=== PATIENT | female | born 1975 | race Caucasian/White ===

== ENCOUNTER 2024-06-09 20:12 | Observation (INO) | payer OTHER, SELFPAY ==
[2024-06-09] VITALS (7 sets, daily range): BP systolic 143–182; BP diastolic 89–127; BMI 39.4
[2024-06-09 17:15] LABS: ALT (SGPT) 21 U/L (0-35); AST (SGOT) 24 U/L (14-36); Albumin 4.5 g/dl (3.5-5.0); Alkaline Phosphatase 83 U/L (38-126); Blood Urea Nitrogen 10 mg/dl (7-17); Calcium 9.7 mg/dl (8.4-10.2); Carbon Dioxide 22 mmol/L (22-30); Chloride 106 mmol/L (98-107); Glucose 131 mg/dl (70-99); Potassium 4.1 mmol/L (3.5-5.1); Sodium 140 mmol/L (135-145); Total Bilirubin 0.5 mg/dl (0.2-1.3); Total Protein 7.9 g/dl (6.3-8.2); eGFR > 60.00
[2024-06-09 17:23] LABS: % Basophils 0.8 % (0-2); % Eosinophils 2.7 % (0-6); % Immature Granulocytes 0.6 % (0-0.5); % Lymphocytes 36.9 % (20.5-51.1); % Monocytes 5.6 % (1.7-9.3); % Neutrophils 53.4 % (42.2-75.2); Absolute Eosinophils 0.1 10^3/uL (0-0.7); Absolute Lymphocytes 1.9 10^3/uL (1.2-3.4); Absolute Monocytes 0.3 10^3/uL (0.1-0.6); Absolute Neutrophils 2.8 10^3/uL (1.4-6.5); Hematocrit 37.2 % (37.0-47.0); Hemoglobin 12.3 g/dL (12.0-16.0); Mean Corp Hgb Conc. 33.1 g/dL (33.0-37.0); Mean Corpuscular Hgb 26.7 pg (27.0-31.0); Mean Corpuscular Volume 80.7 fL (81.0-99.0); Mean Platelet Volume 10.4 fL (7.4-10.4); Nucleated Red Blood Cells % 0 %; Platelet Count 407 10^3/uL (130-400); Red Blood Cell Count 4.61 10^6/uL (4.20-5.40); Red Cell Dist. Width 13.4 % (11.5-14.5); White Blood Cell Count 5.2 10^3/uL (4.8-10.8)
--- NOTE | 2024-06-09 19:07 | ED.CVA ---
History of Present Illness
General
Chief Complaint: CVA/TIA Symptoms
Source: patient
Exam Limitations: none
Time Seen by Provider: 06/09/24 18:58
Onset of Stroke Symptoms
Onset of symptoms known: Yes
Date of onset of symptoms: 06/09/24
Time of onset of symptoms: 02:00
History of Present Illness
History of Present Illness:
49-year-old female went to get to the bathroom at around 2 AM. Noted some tingling and numbness to the right face and a funny feeling in her right arm. No chest pain no shortness of breath. Slight blurry vision. Had some tingling in both legs
yesterday. Currently feels moderately improved but still does not feel 100%. No gait issues no unusual weakness. No double vision. Patient has a history of hypertension.
Past History
Past History
ED Past Medical History: Asthma, HTN and Hypercholesterolemia
ED Past Surgical History: Gynecological (Hysterectomy)
Social History
Tobacco: Non-smoker
Alcohol: Occasional
Personal:
Living: with family
Employment: Employed
Family History
Family History: Early CAD and Other (Maternal history of CAD)
Review of Systems
Review of Systems
All Other Systems: Not applicable
Constitutional: Denies fever or chills
Respiratory: Reports no symptoms
Cardiac: Reports no symptoms
Phy Exam
Physical Exam
Physical Exam:
GENERAL: Alert and oriented in no apparent distress. Significant hypertension her first 2 readings. Repeat reading now is reasonable
EYE: Orbits normal.
NECK: Supple, no carotid bruit
CARDIAC: Regular rate and rhythm without any obvious murmurs.
LUNGS: Clear breath sounds,normal
ABDOMEN: Soft, without focal tenderness or distention
NEUROLOGICAL: Alert and oriented , speech normal. Cranial nerves II through XII intact. Fylzup-hs-[id number] normal. Qtdh-sx-twev normal. No drift. Straight leg raising normal. Light touch intact but subjectively some decreased sensation to the
right face and right arm
SKIN: Warm and dry, no rash or lesion, no discoloration, skin intact.
MUSCULOSKELETAL: No edema,no deformity.Good color
PSYCH: Normal and appropriate interaction.
Course
Orders/Labs/Results
Orders:
Orders
06/09/24 16:30
Electrocardiogram (*1) Stat
Reason for Study: Other
Other Reason for Exam: neuro symptoms
CT Head W/o Iv Contrast Urgent
Comment:
Reason For Exam: left facial droop? tingling in RUE/RLE, ewakness;
EKG- Treatment ONCE
06/09/24 16:31
PTT Urgent
Prothrombin Time Urgent
06/09/24 16:48
Complete Blood Count/With Diff Urgent
Comprehensive Metabolic Panel Urgent
Lyme Progressive Urgent
06/09/24 19:12
Aspirin Chewable [Low Strength Aspirin] 324 mg PO NOW STA
Abnormal Lab Results
06/09/24
16:48
MCV 80.7 L fL
(81.0-99.0)
MCH 26.7 L pg
(27.0-31.0)
Plt Count 407 H 10^3/uL
(130-400)
Immature Gran % 0.6 H %
(0-0.5)
Glucose 131 H mg/dl
(70-99)
06/09/24 16:48
06/09/24 16:48
Vital Signs
Initial and Last Documented VS:
Initial Vital Signs
Temp Pulse Resp BP Pulse Ox
97.7 F 99 16 176/94 98
06/09/24 16:23 06/09/24 16:23 06/09/24 16:23 06/09/24 16:23 06/09/24 16:23
Last Documented Vital Signs
Temp Pulse Resp BP Pulse Ox
97.7 F 99 16 176/94 98
06/09/24 16:23 06/09/24 16:23 06/09/24 16:23 06/09/24 16:23 06/09/24 16:23
MDM/Problems Addressed
Differential Diagnosis Includes:
Patient describing a possible sensory CVA versus prolonged TIA. Not totally consistent as she did have some paresthesias in both extremities yesterday. However relatively consistent today. Her neurologic exam has a NIH of 1 at this time. She did
have significant hypertension on arrival and her initial repeat EKG. Current blood pressure is reasonable. Warrants admission aspirin and further neurologic workup. Strong family history with her mom
*Radiology
Radiology exam reviewed: radiology read reviewed (Negative CT)
*Pulse Oximetry
Patient hypoxic: no
*EKG
Interpreted by ED Provider?: Yes
Interpretation: normal
Comparison EKG: no changes
Heart Rate: 82
Rate: normal
Rhythm: sinus
[place]: normal axis
Interval: normal interval
QRS Pattern: normal QRS
Ischemia: other (Old inferior T wave changes)
*Plan Rep Interpretation
Rate: normal
Interpretation: normal
Heart Rate: 80
Rhythm: sinus
*Critical Care Note
Total Time (30-74mins, 75-104mins- exclusive of procedures): Not Applicable
Data Reviewed
Review of Other/Old Records Reveals: Labs, Records, Radiology Studies and Testing
ED Attending Note
-
Portions of this chart may have been created with voice recognition software.� Occasional wrong word or��sound alike� substitutions may have occurred due to the inherent limitations of voice recognition software.
Discharge Plan
Departure
Patient Disposition: Admit
Date of Disposition: 06/09/24
Time of Disposition: 19:12
Presentation/result/management discussed w/ accepting MD/DO: Hospitalist
Discharge Problem:
Possible sensory CVA, Hypertensive urgency
Prescriptions:
No Action
multivitamin [Daily Vitamin] 1 EACH tablet
1 ea PO DAILY
amlodipine-benazepril 1 CAPSULE capsule
1 cap PO DAILY
amlodipine-benazepril 1 CAPSULE capsule
1 cap PO DAILY Qty: 30 0RF
diphenoxylate-atropine [Lomotil] 2.5-0.025 mg tablet
1 tab PO QID PRN (Reason: diarrhea) Qty: 10 0RF
ondansetron 4 mg tablet,disintegrating
4 mg PO QID PRN (Reason: nausea and vomiting) Qty: 20 0RF
Referrals:
Rajinder Gastelum DO [Family Provider] -
Interventions
Interventions:
*Risk Screen - Suicide Last Done: 06/09/24 16:23
*General Assessment Last Done: 06/09/24 16:23
*Neglect/Abuse Screening Last Done: 06/09/24 16:23
Discharge Date and Time
Print Language: JORDANIAN
[2024-06-09] MEDS: LOW STRENGTH ASPIRIN 324 MG PO (19:28)
--- NOTE | 2024-06-09 19:48 | HPS.HSE ---
Family Physician
-
Family Physician: Rajinder Gastelum
Chief Complaint
-
numbness
History of Present Illness
49-year-old female past medical history of hypertension, asthma, hypercholesterolemia presenting with numbness and tingling of the right side of her face in the cheek of her left side of her face started around 2 AM when she went up to go to the
bathroom. She also had numbness and tingling in her right upper extremity mostly in the upper arm. Yesterday she had some mild tingling and weakness in the thighs bilaterally but this had resolved. She had some slight blurry vision.
She denies any headache, gait dysfunction, difficulty speaking or swallowing but did feel that when she was chewing she had some weakness.
She denies any chest pain or shortness of breath.
She last checked her blood pressure few days ago and it was in the 120s.
Denies smoking. Drinks alcohol sometimes.
Family history significant for mother and maternal grandmother with history of heart disease and multiple strokes.
Medical History
Past Medical History
Past Medical History: Reports Other ( hypertension, asthma, hypercholesterolemia )
Past Surgical History: Reports None
Social History
Tobacco: Non-smoker
Alcohol: Occasional
Drug: None
Family History
Family History: Other (Family history significant for mother and maternal grandmother with history of heart disease and multiple strokes.)
Allergies / Home Medications
Allergies reflects when Allergies were last updated in [employer].
Home Medications with original date entered in [employer]
Allergy/Medication List:
Allergies
Allergy/AdvReac Type Severity Reaction Status Date / Time
No Known Drug Allergies Allergy NA Verified 06/09/24 16:22
cats & dogs Allergy itchy Uncoded 06/09/24 16:22
eyes,sneezy,
runny nose
molds Allergy sneezing Uncoded 06/09/24 16:22
trees & grasses Allergy itchy Uncoded 06/09/24 16:22
eyes,sneezy,cough
Home Medications
amlodipine 10 mg-benazepril 20 mg capsule 1 cap PO HS 06/09/24
metoprolol succinate 50 mg tablet,extended release 24 hr 50 mg PO HS 06/09/24
Review of Systems
-
History Source: Patient
A 12 point ROS was completed and negative except as noted: Yes
Constitutional: Reports No Symptoms
EENT: Reports No Symptoms
Respiratory: Reports No Symptoms
Cardiac: Reports No Symptoms
Abdomen/GI: Reports No Symptoms
: Reports No Symptoms
Musculoskeletal: Reports No Symptoms
Skin: Reports No Symptoms
Neurological: Reports See HPI
Endocrine: Reports No Symptoms
Hematologic/Lymphatic: Reports No Symptoms
Psych: Reports No Symptoms
Physical Exam
Vital Signs
Vital Signs
Temp Pulse Resp BP Pulse Ox
97.7 F 84 16 155/92 98
06/09/24 16:23 06/09/24 19:30 06/09/24 16:23 06/09/24 19:05 06/09/24 19:30
Physical Exam
General: Well Developed, Well Nourished and No Apparent Distress
HEENT: NormoCephalic, Moist mucous membranes and Atraumatic
Respiratory: Clear
Cardiac: S1/S2 and Regular Rhythm; No Murmur or Rub
GI: Soft, Non Tender, Non Distended and Normal Bowel Sounds; No Organomegaly
Rectal: Deferred by Provider
Musculoskeletal: No Clubbing, No Cyanosis and No Edema
Skin: No Rash
Neuro: Nonfocal/grossly intact and Other (NIh 1 for sensory loss, slight weakness right leg )
Laboratory Results
-
06/09/24 16:48
06/09/24 16:48
Laboratory Results
Total Bilirubin 0.5 mg/dl (0.2-1.3) 06/09/24 16:48
AST 24 U/L (14-36) 06/09/24 16:48
ALT 21 U/L (0-35) 06/09/24 16:48
Alkaline Phosphatase 83 U/L (38-126) 06/09/24 16:48
Data Reviewed
-
Lab Data: Labs Reviewed by me
Old Records: Reviewed
Impression/Plan
-
IMPRESSION:
PLAN:
# Likely CVA
-NIH of 1 due to sensory loss
-CT head shows no acute intracranial abnormality
-Aspirin and Plavix given
-Check MRI/MRA head and neck
-Check A1c and lipid panel
-PT/OT/speech
-Neurology consulted
# Hypertensive emergency
-Permissive hypertension up to 220 systolic
-Hold amlodipine/benazepril
-Continue metoprolol
Full code
DVT prophylaxis�SCDs
Regular diet
[2024-06-09] MEDS: PLAVIX 300 MG PO (19:54)
[2024-06-09 20:25] LABS: INR 1.02; PT 13.2 Sec (11.4-14.6)
[2024-06-09 20:26] LABS: APTT 27.1 Sec (23.4-35.0)
[2024-06-09] MEDS: TOPROL XL 50 MG PO (21:54)
--- NOTE | 2024-06-09 22:00 | PTCARENOTE ---
Pt admitted to [facility]. AAOx3. C/o right side weakness, tingling and numbness. Mild dizziness and visual blurriness. NIH score 2. NSR in the monitor.Lungs and WNL. Abd round and obese. Call santiago within reach. SCD's in placed. Will continue with tx
plan.
[2024-06-10] VITALS (7 sets, daily range): BP systolic 111–154; BP diastolic 66–95; PULSE 81; O2SAT 95
[2024-06-10 07:06] LABS: % Basophils 0.7 % (0-2); % Eosinophils 2.5 % (0-6); % Immature Granulocytes 0.7 % (0-0.5); % Lymphocytes 36.5 % (20.5-51.1); % Monocytes 8.2 % (1.7-9.3); % Neutrophils 51.4 % (42.2-75.2); Absolute Eosinophils 0.2 10^3/uL (0-0.7); Absolute Lymphocytes 2.2 10^3/uL (1.2-3.4); Absolute Monocytes 0.5 10^3/uL (0.1-0.6); Absolute Neutrophils 3.1 10^3/uL (1.4-6.5); Hemoglobin 11.8 g/dL (12.0-16.0); Mean Corp Hgb Conc. 32.8 g/dL (33.0-37.0); Mean Corpuscular Hgb 26.6 pg (27.0-31.0); Mean Corpuscular Volume 81.3 fL (81.0-99.0); Mean Platelet Volume 9.9 fL (7.4-10.4); Nucleated Red Blood Cells % 0 %; Platelet Count 401 10^3/uL (130-400); Red Blood Cell Count 4.43 10^6/uL (4.20-5.40); Red Cell Dist. Width 13.4 % (11.5-14.5); White Blood Cell Count 6.1 10^3/uL (4.8-10.8)
[2024-06-10 07:17] LABS: Blood Urea Nitrogen 12 mg/dl (7-17); Calcium 9.5 mg/dl (8.4-10.2); Carbon Dioxide 24 mmol/L (22-30); Chloride 105 mmol/L (98-107); Estimated Creatinine Clearance > 125 ml/min; Glucose 114 mg/dl (70-99); HDL Cholesterol 26 mg/dl; LDL Cholesterol, Calculated 191 mg/dl; Potassium 4.3 mmol/L (3.5-5.1); Sodium 141 mmol/L (135-145); Total Cholesterol 274 mg/dl (50-199); Triglyceride 289 mg/dl (10-149); Very Low Density Lipoprotein 57 mg/dl (0-30); eGFR > 60.00
[2024-06-10] MEDS: LOW STRENGTH ASPIRIN 81 MG PO (07:59)
[2024-06-10] MEDS: PLAVIX 75 MG PO (07:59)
[2024-06-10 08:16] LABS: Glycohemoglobin (HgbA1c) 6.6 % (4.0-5.6)
--- NOTE | 2024-06-10 08:36 | CON.NEURO4 ---
Addendum entered and electronically signed by Poppy Bloom DO 06/10/24 16:43:
Studies reviewed.
I have personally examined the patient. I agree with the MANAGER TECHNICAL TRAINING's Note.
My addenda:
49 year-old female with numbness, fatigue, tingling, ?facial droop, R arm weakness (not currently present on exam) with very low B12 levels; she was not aware of this. MRI brain negative for stroke/other acute findings as cause for symptoms. B12
supplementation started. Only abnormality on neurological examination was R V1-3 diminished sensation to temperature. Stopped DAPT. Check MRI C/T spines given low B12, constellation of symptoms, ?subacute combined degeneration. Check MMA,
anti-intrinsic factor abs, copper, folate, SPEP, HIV. Can be discharged tomorrow if imaging is unremarkable.
Original Note:
Documented by User: Trinh Flores NP 06/10/24 10:34
Consultation - Neurology 4
-
CONSULTING PHYSICIAN: Poppy Bloom DO
REFERRING PHYSICIAN: Hospitalists/Dr. Harkins
DICTATED BY: PRABHAKAR Anderson
DATE/TIME OF REQUEST: 06/09/24
DATE/TIME OF CONSULTATION: 06/10/24
Reason for Consultation: Numbness
History of Present Illness:
This is a 49-year-old right-handed female who has presented to the hospital on 06/09/24 with report of numbness. Patient reports several weeks of noticeable shortness of breath while walking up a flight of steps, in addition to a one week history of
feeling extremely fatigued. Three days ago on 06/07/24 she reports that bilateral lower extremities from the hips down felt tingly, and her niece thought that one side of her face appeared droopy and she seemed 'off.' Her BLE tingling improved and
was hardly noticeable the following day. She went to bed two nights ago on 06/08/24 feeling at her baseline. At 0200 on 06/09/24 she woke up to use the bathroom and noticed that the right side of her face felt numb like a novocaine sensation, and she
notes this spread slightly into her left cheek as well. She proceeded to go back to bed, and woke up for the day at 0930 yesterday. Upon waking at 0930, she notes that the numbness was persistent in her right face, she had an 'ants crawling' in her
head sensation, and her right arm felt heavy. Her symptoms did not resolve, prompting her to come to the ER in the evening. CT head was obtained on arrival in the ER and is negative for any acute findings. Blood pressure was elevated at 176/94.
NIHSS was 1 for mild decreased sensation. She was not a candidate for TNK/IAT due to outside of time window, low NIHSS. She was loaded with DAPT in the ER.
Overnight, she reports having a headache at 0200 and then again when she woke up, but after eating breakfast it has resolved. Her headache was an aching sensation on the right side of her head and she rated it a 3-4/10. She notes photophobia
currently but denies any phonophobia, nausea, or vomiting. She still endorses ongoing right facial paresthesias, and a heavy sensation in her RUE/RLE. She notes that her vision, most prominently in her right eye was blurry for the past two days but
has improved today. She also notes that swallowing felt difficulty with breakfast this morning which is unusual. Overall she feels extreme fatigue. She denies any dizziness, speech difficulty, ataxia, chest pain, and palpitations.
She notes a 10 year history of hypertension. She has been taking her metoprolol and amlodipine-benazepril for years with no recent changes. She has not been checking her blood pressure at home. She notes having right hand/wrist sensation changes in
2019. She had an EMG at that time that was negative. She took a break from typing and her symptoms resolved. She also notes recently having sciatica down bilateral lower extremities when driving for a prolonged period only, she is supposed to have
an EMG for further workup of this but has not had this done yet. She denies any back/neck pain. About 8 years ago she notes an episode of extreme fatigue followed by vertigo. She underwent a stroke workup at [facility] at that time that was unremarkable.
She was told it was possibly a vestibular migraine. Otherwise, she denies any history of headaches/migraines. She is not taking any blood-thinning medications.
Past Medical History: HTN, HLD, endometriosis, palpitations, [place].
Surgical History: KETURAH-BSO, L thumb surgery
Family History: Mother- NV x5, first age 42. CVA x2, first in her 50's, brain tumor, migraines. Sister- migraine with visual aura. Sister- silent NV in her 40's.
Social History: Denies tobacco. Rare alcohol. Denies illicit drug use.
Allergies: Cat dander, dog dander, grass pollen, mold, tree and shrub pollen.
Home Medications: See below.
Review of Symptoms:
Patient denies any fever, pain, shortness of breath, GI or symptoms.
�Per the HPI.�All systems are reviewed negative except above.
Physical Exam:
The patient is afebrile, abdomen is nondistended, breathing is unlabored, skin is warm and dry, no edema.
NIH Stroke Scale:
I performed the NIH stroke scale on the patient on 06/10/24 at 0900. The patient scored 1 points on the NIH stroke scale assessment, which were assigned as follows: See below.
Neurologic Examination:
The patient is awake, alert and oriented x 3. She is able to follow commands and answer questions appropriately. There is no aphasia or dysarthria. On cranial nerve assessment, pupils are 3 mm bilateral, round and reactive to light and
accommodation. Visual madden are full. Extraocular movements are intact. Facial sensations are intact and bilaterally symmetrical, there is no facial asymmetry. Hearing is intact bilaterally to normal conversation volume. Tongue palate and uvula are
midline. Motor strengths are 5/5 left upper, 5-/5 right upper, 5/5 left lower, and 5-/5 right lower extremities on medical research Saxman scale. There is no drift or involuntary movement noted. Deep tendon reflexes are 1+ bilateral upper and lower
extremities and Babinski is absent bilaterally. Sensations of touch, temperature and vibration are mildly reduced in the right face, arm, and lower extremity. There was no extinction noted on double simultaneous stimulation. Coordination is intact
by finger to nose bilaterally.
Lab Results: See below.
Neuro Imaging:
1. CT Head 06/09/24: No acute intracranial abnormality noted.
Differentials for the patient's presentation include:
1. Small ischemic stroke possibly producing symptoms given risk factors for stroke.
2. Hypertensive urgency.
3. Complicated migraine possibly producing symptoms but less likely given absence of migraine history.
4. HLD.
5. New diagnosis NIDDM.
Patient has the following risk factors for their symptoms: HTN, HLD, NIDDM, family history of stroke
IV Tenecteplase/IAT candidacy: She was not a candidate for TNK/IAT due to outside of time window, low NIHSS.
Recommendations:
-Continue DAPT with aspirin 81mg and Plavix 75mg daily for 21 days. After 21 days, discontinue Plavix and continue aspirin 81mg daily only, indefinitely.
-MRI brain noncontrast, MRA head/neck pending. Lorazepam 1mg IV on-call for MRI due to claustrophobia.
-Goal normotension as symptom onset was >24 hours ago.
-If MRI demonstrates a stroke, will obtain TTE.
-Monitor on telemetry.
-If headache returns, can provide prochlorperazine 10mg IV or migraine cocktail.
-LDL goal <70. LDL is 191. Atorvastatin 40mg daily initiated.
-Goal normoglycemia, hbA1c is 6.6. Will need senior health educator evaluation.
-NIHSS and neurological checks per unit guidelines.
-Provide patient with a stroke education packet.
-PT/OT/ST evaluations.
-DVT prophylaxis.
-Will follow pending results.
Discussed patient care with: Dr. Bloom, the patient
Vital Signs and Labs
-
Vital Signs and Labs:
Vital Signs
Temp Pulse Resp BP Pulse Ox
98.0 F 76 16 149/91 97
06/10/24 07:00 06/10/24 07:00 06/10/24 07:00 06/10/24 07:00 06/10/24 07:00
Lab Results
06/10/24 06:22
06/10/24 06:22
PT 13.2 Sec (11.4-14.6) 06/09/24 19:36
INR 1.02 06/09/24 19:36
APTT 27.1 Sec (23.4-35.0) 06/09/24 19:36
Sodium 141 mmol/L (135-145) 06/10/24 06:22
Potassium 4.3 mmol/L (3.5-5.1) 06/10/24 06:22
BUN 12 mg/dl (7-17) 06/10/24 06:22
Glucose 114 mg/dl (70-99) H 06/10/24 06:22
Calcium 9.5 mg/dl (8.4-10.2) 06/10/24 06:22
LDL Cholesterol, Calc 191 mg/dl 06/10/24 06:22
Medications
-
Active Medications
Generic Name Dose Route Start Last Admin
Trade Name Freq PRN Reason Stop Dose Admin
Acetaminophen 650 mg 06/10/24 09:52
Acetaminophen 325 Mg Tablet PO 07/08/24 09:51
Q6HPRN PRN
mild pain/ fever>100.5F
Aspirin 81 mg 06/10/24 08:00 06/10/24 07:59
Aspirin 81 Mg Chewable Tablet PO 07/08/24 07:59 81 mg
DAILY WILLARD Administration
Atorvastatin Calcium 40 mg 06/10/24 18:00
Atorvastatin (Lipitor) 40 Mg Tablet PO 07/08/24 17:59
QPM WILLARD
Clopidogrel Bisulfate 75 mg 06/10/24 08:00 06/10/24 07:59
Clopidogrel 75 Mg Tablet PO 07/08/24 07:59 75 mg
DAILY WILLARD Administration
Lorazepam 1 mg 06/10/24 08:58
Lorazepam 2 Mg/Ml Vial IV 06/10/24 16:00
PRN PRN
MRI
Metoprolol Succinate 50 mg 06/09/24 22:00 06/09/24 21:54
Metoprolol 50 Mg Extended Release Tablet PO 07/07/24 21:59 50 mg
HS WILLARD Administration
Ondansetron HCl 4 mg 06/10/24 09:52
Ondansetron 4 Mg/2 Ml Vial IV 07/08/24 09:51
Q6HPRN PRN
NAUSEA/VOMITING
Sodium Chloride 0 flush 06/09/24 22:00
Sodium Chloride 0.9% (Flush) Syringe IV 07/07/24 21:59
PER PROTOCOL WILLARD
Sodium Chloride 0.5 ml 06/10/24 09:02
Nss (Pf) 10 Ml Vial For Ativan 1 Mg Dose IV 06/10/24 16:00
PRN PRN
IV LORAZEPAM DILUTION
Home Medications
�Medication �Instructions �Recorded
amlodipine 10 mg-benazepril 20 mg 1 cap PO HS Blood Pressure 06/09/24
capsule
metoprolol succinate 50 mg 50 mg PO HS Heart Failure 06/09/24
tablet,extended release 24 hr
NIH Stroke Score
Subsequent NIH Scale
Date of Subsequent NIH Scale: 06/10/24
Time of Subsequent NIH Scale: 09:00
NIH Stroke Score
Level of Consciousness: 0 - Alert
LOC Questions: 0-Answers both correctly
LOC Commands: 0-Performs both correctly
Best Horizontal Gaze: 0-Normal
Visual Madden: 0=Normal, no visual loss
Facial Palsy: 0=Normal, symmetrical
Motor - Right Arm: 0=No drift 10 seconds
Motor - Left Arm: 0=No drift 10 seconds
Motor - Right Le-No drift 5 seconds
Motor - Left Le-No drift 5 seconds
Limb Ataxia: 0-Absent
Sensation: 1-Mild loss
Best Language: 0-No aphasia
Dysarthria: 0-Normal
Extinction and Inattention: 0-No abnormality
Total Score:: 1
Modified Jamar (mRS) Score
Modified Kimble Scale (mRS): No significant disability. Able to carry out usual activities.
Score: 1
Alteplase Contraindication
Inclusion and Exclusion criteria reviewed: Yes
Reasons for NON-Tx with Thrombolytics ABSOLUTE Exclusions: Greater than 4.5 hrs from onset of sxs
IAT Contraindications: NIHSS < 6

Documented by User: Poppy Bloom DO 06/10/24 16:37
NIH Stroke Score
NIH Stroke Score
Total Score:: 1
Modified Kimble (mRS) Score
Score: 1
--- NOTE | 2024-06-10 08:57 | W.PN.HOSP.TC ---
Today's Communication/Plan
-
see bold
Assessment / Plan
Assessment / Plan
HPI: 49-year-old female past medical history of hypertension, asthma, hypercholesterolemia presenting with numbness and tingling of the right side of her face in the cheek of her left side of her face started around 2 AM when she went up to go to
the bathroom. She also had numbness and tingling in her right upper extremity mostly in the upper arm. Yesterday she had some mild tingling and weakness in the thighs bilaterally but this had resolved. She had some slight blurry vision.
#Right face paresthesia/numbness
#Right upper extremity paresthesia/numbness
#Right upper extremity weakness
Brain MRI negative
Appreciate neurology input, recommend C/T-spine MRI
#Hypertensive urgency
Blood pressure 182/127 in the ER
Blood pressure improved on metoprolol succinate 50 mg at bedtime
Resume home amlodipine 5 mg daily
#Vitamin B12 deficiency
Start supplement
#Iron deficiency
Start supplement
#Newly diagnosed type 2 diabetes
Hemoglobin A1c 6.6
Diabetes education
#Obesity due to excess calories
Affects all aspects of care
DVT prophylaxis�SCDs
Full code
Total time spent to see the patient on the floor, examine the patient, review data and lab results, discuss treatment plan with patient, nursing staff around 53 minutes.
Physical Exam
General: Morbidly obese, no acute distress
HEENT: Normocephalic, Atraumatic, EOMI, MMM
Respiratory: Clear to Auscultation bilaterally
Cardiac: Normal S1/S2, Regular Rate and Rhythm
GI: Soft, Nontender, Nondistended, Normal Bowel Sounds
Extremities: No Clubbing, Cyanosis, or Edema
Neuro:
Right upper extremity 4 out of 5
Left upper extremity 5 out of 5
Bilateral lower extremity 5 out of 5
Psych: Calm, Cooperative
Derm: No Visible lesions
Anticipated Discharge: Within 24 hours
Subjective/Interval History
-
Date of Service: June 10, 2024
Patient continues to have numbness in her right face, right upper extremity. Also reports right eye blurry vision. No fever, no vomiting.
Objective Data
-
Labs:
Laboratory Results
06/09/24 06/10/24
16:48 06:22
WBC 5.2 6.1
Hgb 12.3 11.8 L
Hct 37.2 36.0 L
Plt Count 407 H 401 H
Sodium 141
Potassium 4.3
Chloride 105
Carbon Dioxide 24
BUN 12
Creatinine 0.8
Glucose 114 H
Calcium 9.5
Vital Signs:
Vital Signs
Temp Pulse Resp BP Pulse Ox
97.8 F 74 16 135/84 98
06/10/24 03:10 06/10/24 03:10 06/10/24 03:10 06/10/24 03:10 06/10/24 03:10
I&O
06/09/24 06/10/24 06/11/24
06:59 06:59 06:59
Intake Total 720 / 720
Balance 720 / 720
[2024-06-10 10:44] LABS: TSH Reflex To Free T4 1.69 uIU/ml (0.47-4.68)
[2024-06-10 10:48] LABS: Ferritin 7.6 ng/ml (11.1-264.0)
[2024-06-10 11:03] LABS: Vitamin B12 < 159 pg/ml (239-931)
[2024-06-10] MEDS: ATIVAN 1 MG IV ×2 (11:58→12:37)
[2024-06-10] MEDS: NSS (PRESERVATIVE FREE) 0.5 ML IV ×2 (11:58→13:40)
[2024-06-10 12:18] LABS: Folate 13.2 ng/ml (2.76-20)
[2024-06-10] MEDS: CYANOCOBALAMIN 1000 MCG IM (15:35)
[2024-06-10] MEDS: FEOSOL 325 MG PO (15:35)
--- NOTE | 2024-06-10 15:42 | CM ---
Patient seen bedside, initial assessment completed. Patient resides independently in a multiple story home, no steps to enter. Patient denies DME, VN, or SNF. Patient confirms PCP Rajinder Gastelum, [facility] in [place], confirms prescription
coverage. Patient denies food, housing/utility, transportation insecurities at home. OBS form reviewed, signed, placed in chart. CM will continue to follow for all discharge planning needs.
Plan; home no needs likely, no skilled PT need.
[2024-06-10] MEDS: LIPITOR 40 MG PO (17:09)
[2024-06-10] MEDS: TOPROL XL 50 MG PO (21:13)
[2024-06-11] VITALS (7 sets, daily range): BP systolic 122–154; BP diastolic 71–102
[2024-06-11 06:25] LABS: HIV Combo Negative (Negative)
[2024-06-11] MEDS: VITAMIN B-12 1000 MCG PO (08:38)
[2024-06-11] MEDS: FEOSOL 325 MG PO (08:38)
--- NOTE | 2024-06-11 08:48 | W.PN.NEURO.1 ---
Today's Communication / Plan
-
.
Neuro Assessment/Plan
Assessment
This is a 49-year-old right-handed female who presented to on 06/09/24 with report of primarily right-sided numbness.
-MRI brain 06/10/24: No acute intracranial abnormality noted.
-MRA head/neck 06/10/24: No focal hemodynamically significant stenosis, aneurysm or occlusion.
I. MRI brain negative for stroke, duration of symptoms too long to be supportive of TIA.
II. Vitamin B12 deficiency.
III. Low ferritin level.
IV. Migraine aura possible.
V. HLD.
. New diagnosis NIDDM.
Plan
-MRI cervical and thoracic spine w/ and w/o contrast pending.
-Okay to discontinue DAPT.
-B12 level <159, initiate cyanocobalamin 1000mcg PO daily.
-Ferritin level 7.6, continue ferrous sulfate 325mg PO daily.
-Goal normotension.
-Monitor on telemetry.
-If headache returns, can provide prochlorperazine 10mg IV or migraine cocktail.
-LDL goal <70. LDL is 191. Patient agreeable to statin therapy, would continue atorvastatin 40mg daily.
-Goal normoglycemia, hbA1c is 6.6. Will need special educator evaluation.
-Okay to discontinue NIHSS. Continue Neurological checks per unit guidelines.
-Provide patient with a stroke education packet.
-PT/OT/ST evaluations.
-DVT prophylaxis.
-Will follow pending results.
Subjective/Objective
Subjective Data
Date of Service: June 11, 2024
No acute events overnight. Patient reports some improvement in R sided numbness/weakness but not complete resolution. She denies any headache, dizziness, vision changes, speech/swallow difficulty, nausea, chest pain, palpitations, and shortness of
breath.
Objective Data
Vital Signs
Temp Pulse Resp BP Pulse Ox
97.4 F 77 18 131/92 95
06/11/24 07:56 06/11/24 07:56 06/11/24 07:56 06/11/24 07:56 06/11/24 07:56
Lab Results
06/10/24 06:22
06/10/24 06:22
PT 13.2 Sec (11.4-14.6) 06/09/24 19:36
INR 1.02 06/09/24 19:36
APTT 27.1 Sec (23.4-35.0) 06/09/24 19:36
Sodium 141 mmol/L (135-145) 06/10/24 06:22
Potassium 4.3 mmol/L (3.5-5.1) 06/10/24 06:22
BUN 12 mg/dl (7-17) 06/10/24 06:22
Glucose 114 mg/dl (70-99) H 06/10/24 06:22
Calcium 9.5 mg/dl (8.4-10.2) 06/10/24 06:22
LDL Cholesterol, Calc 191 mg/dl 06/10/24 06:22
Vitamin B12 < 159 pg/ml (239-931) L 06/10/24 06:22
Patient Allergies
cat dander Allergy (Verified 06/09/24 21:18)
itchy eyes,sneezy, runny nose
dog dander Allergy (Verified 06/09/24 21:18)
itchy eyes,sneezy, runny nose
grass pollen Allergy (Verified 06/09/24 21:18)
itchy eyes,sneezy,cough
mold Allergy (Verified 06/09/24 21:18)
sneezing
tree and shrub pollen Allergy (Verified 06/09/24 21:18)
itchy eyes,sneezy,cough
Review of Systems
-
History Source: Patient
EENT: Negative Blurry Vision, Decreased Vision or Swallowing Difficulty
Respiratory: Negative Cough or Trouble Breathing
Cardiac: Negative Chest Pain or Palpitations
Abdomen/GI: Negative Nausea
Neuro: Weakness and Numbness; Negative Dizzy, Headache, Ataxia, Tremors or Speech Problem
Physical Exam
-
General: Well Developed, Well Nourished and No Apparent Distress
Eyes: No Ptosis and PERRLA
HEENT: Normocephalic and Atraumatic
Neck: Full Range of Motion
Respiratory: No Dyspnea
GI: Non-distended
Extremities: No Clubbing, No Cyanosis and No Edema
Psych: Unremarkable
Extended Neurological Exam
Mood & Affect: Mood Unremarkable and Affect Unremarkable
Attention Span & Concentration: Awake, Alert and Interactive
Memory: Unremarkable (AAOx3) and Able to Recall
Tremor: Hand Tremor Absent and Head Tremor Absent
Involuntary Movement: None
Speech: Quality Unremarkable, Quantity Unremarkable and Rate of Production Unremarkable
Cranial Nerve II: Left Eye: Pupillary Reactivity Unremarkable, Pupillary Size Unremarkable and Visual Madden Intact
Cranial Nerve II: Right Eye: Pupillary Reactivity Unremarkable, Pupillary Size Unremarkable and Visual Madden Intact
Cranial Nerves III, IV, : Extraocular Movement: Extraocular Movement Full in all Directions
Cranial Nerve V: Facial Sensation: Reduced (on right)
Cranial Nerve VII: Facial Symmetry: Normal Facial Symmetry
Cranial Nerve VIII: Hearing: Unremarkable Hearing to Normal Conversational Volume
Cranial Nerves IX, X: Palate Movement: Palate Elevation Symmetric
Cranial Nerve XI: Shoulder Shrug: Unremarkable
Cranial Nerve XII: Tongue Protusion: Midline
Muscle Strength, Overall: Reduced on Right (RUE 5-/5, RLE 5-/5)
Muscle Bulk & Tone: Bulk Unremarkable and Tone Unremarkable
Pronator Drift: No Drift in Upper Extremities and No Drift in Lower Extremities
Cold Sensation: Other (increased on R)
Vibration Sensation: Unremarkable
Touch Sensation: Double Simultaneous Stimulation Unremarkable
Coordination: Gdtuvc-[id number] Testing Unremarkable
Babinski Sign: Absent Bilaterally
Gait & Station: Up from Seated Without Problem
Data Reviewed
-
MRI Head: Report Reviewed and Image Reviewed
MRA Head: Report Reviewed and Image Reviewed
MRA Neck: Report Reviewed and Image Reviewed
Labs: Report Reviewed
Lipid Profile: Report Reviewed
HgbA1C: Report Reviewed
Reviewed with: Physician and Patient
Medications
-
Active Medications
Generic Name Dose Route Start Last Admin
Trade Name Freq PRN Reason Stop Dose Admin
Acetaminophen 650 mg 06/10/24 09:52
Acetaminophen 325 Mg Tablet PO 07/08/24 09:51
Q6HPRN PRN
mild pain/ fever>100.5F
Amlodipine Besylate 5 mg 06/11/24 12:00 06/11/24 12:00
Amlodipine 5 Mg Tablet PO 07/09/24 11:59 5 mg
DAILY WILLARD Administration
Atorvastatin Calcium 40 mg 06/10/24 18:00 06/10/24 17:09
Atorvastatin (Lipitor) 40 Mg Tablet PO 07/08/24 17:59 40 mg
QPM WILLARD Administration
Cyanocobalamin 1,000 mcg 06/11/24 08:00 06/11/24 08:38
Cyanocobalamin 1,000 Mcg Tablet PO 07/09/24 07:59 1,000 mcg
DAILY WILLARD Administration
Ferrous Sulfate 325 mg 06/10/24 14:50 06/11/24 08:38
Ferrous Sulfate 325 Mg Tablet PO 07/08/24 14:49 325 mg
DAILY WILLARD Administration
Lorazepam 2 mg 06/11/24 08:55 06/11/24 09:28
Lorazepam 2 Mg/Ml Vial IV 07/09/24 08:54 2 mg
ONCE PRN PRN Administration
MRI
Metoprolol Succinate 50 mg 06/09/24 22:00 06/10/24 21:13
Metoprolol 50 Mg Extended Release Tablet PO 07/07/24 21:59 50 mg
HS WILLARD Administration
Ondansetron HCl 4 mg 06/10/24 09:52
Ondansetron 4 Mg/2 Ml Vial IV 07/08/24 09:51
Q6HPRN PRN
NAUSEA/VOMITING
Sodium Chloride 0 flush 06/09/24 22:00
Sodium Chloride 0.9% (Flush) Syringe IV 07/07/24 21:59
PER PROTOCOL WILLARD
Sodium Chloride 1 ml 06/11/24 09:04
Nss (Pf) 10 Ml Vial For Ativan 2 Mg Dose IV 07/09/24 09:03
ONCE PRN PRN
IV LORAZEPAM DILUTION
Home Medications
�Medication �Instructions �Recorded
amlodipine 10 mg-benazepril 20 mg 1 cap PO HS Blood Pressure 06/09/24
capsule
metoprolol succinate 50 mg 50 mg PO HS Heart Failure 06/09/24
tablet,extended release 24 hr
--- NOTE | 2024-06-11 09:14 | W.PN.HOSP.TC ---
Today's Communication/Plan
-
See bold
Assessment / Plan
Assessment / Plan
HPI: 49-year-old female past medical history of hypertension, asthma, hypercholesterolemia presenting with numbness and tingling of the right side of her face in the cheek of her left side of her face started around 2 AM when she went up to go to
the bathroom. She also had numbness and tingling in her right upper extremity mostly in the upper arm. Yesterday she had some mild tingling and weakness in the thighs bilaterally but this had resolved. She had some slight blurry vision.
#Right face paresthesia/numbness
#Right upper extremity paresthesia/numbness
#Right upper extremity weakness
Brain MRI negative
Appreciate neurology input, recommend C/T-spine MRI
#Hypertensive urgency
Blood pressure 182/127 in the ER
Blood pressure improved on metoprolol succinate 50 mg at bedtime
Resume home amlodipine 5 mg daily
#Vitamin B12 deficiency
Started B12 supplement
#Iron deficiency
Started iron supplement
#Hyperlipidemia
Started statin
#Newly diagnosed type 2 diabetes
Hemoglobin A1c 6.6
Patient informed of her diagnosis by myself on 06/11
Diabetes education consult placed
#Obesity due to excess calories
Affects all aspects of care
DVT prophylaxis�SCDs
Full code
Total time spent to see the patient on the floor, examine the patient, review data and lab results, discuss treatment plan with patient, nursing staff around 43 minutes.
Physical Exam
General: Morbidly obese, no acute distress
HEENT: Normocephalic, Atraumatic, EOMI, MMM
Respiratory: Clear to Auscultation bilaterally
Cardiac: Normal S1/S2, Regular Rate and Rhythm
GI: Soft, Nontender, Nondistended, Normal Bowel Sounds
Extremities: No Clubbing, Cyanosis, or Edema
Neuro:
Right upper extremity 4 out of 5
Left upper extremity 5 out of 5
Bilateral lower extremity 5 out of 5
Psych: Calm, Cooperative
Derm: No Visible lesions
Anticipated Discharge: Within 24 hours
Subjective/Interval History
-
Date of Service: June 10, 2024
Patient reports her paresthesias have improved. No fever, no vomiting.
Objective Data
-
Labs:
Laboratory Results
06/09/24 06/10/24
16:48 06:22
WBC 5.2 6.1
Hgb 12.3 11.8 L
Hct 37.2 36.0 L
Plt Count 407 H 401 H
Sodium 141
Potassium 4.3
Chloride 105
Carbon Dioxide 24
BUN 12
Creatinine 0.8
Glucose 114 H
Calcium 9.5
Vital Signs:
Vital Signs
Temp Pulse Resp BP Pulse Ox
97.9 F 77 18 139/81 98
06/10/24 11:00 06/10/24 11:00 06/10/24 11:00 06/10/24 11:00 06/10/24 11:00
I&O
06/09/24 06/10/24 06/11/24
06:59 06:59 06:59
Intake Total 720 / 720
Balance 720 / 720
[2024-06-11] MEDS: ATIVAN 2 MG IV ×2 (09:28→16:08)
[2024-06-11] MEDS: NORVASC 5 MG PO (12:00)
--- NOTE | 2024-06-11 14:52 | CM ---
Addendum entered by Ni Coe 06/11/24 15:59:
Patient seen bedside, tearful, reports she found out she has diabetes through ordering her food, sister on patients phone. TT to Hospitalist for diabetic consult. CM offered support, provided Risk Management number. Patient agreeable to go down for
MRI. Will continue to follow for all discharge planning needs.
Original Note:
Patient seen bedside, patient reports she is frustrated, has been waiting for an MRI. 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 Nurse updated, awaiting to hear from MRI. CM will continue to
follow for all discharge planning needs.
Plan; home no needs.
[2024-06-11] MEDS: NSS (PRESERVATIVE FREE) 1 ML IV (16:09)
[2024-06-11] MEDS: LIPITOR 40 MG PO (18:22)
[2024-06-11] MEDS: TOPROL XL 50 MG PO (23:15)
[2024-06-12 03:51] VITALS: BP 143/88
[2024-06-12 07:00] VITALS: BP 132/91
--- NOTE | 2024-06-12 08:10 | W.PN.HOSP.TC ---
Today's Communication/Plan
-
Discharge today
Assessment / Plan
Assessment / Plan
HPI: 49-year-old female past medical history of hypertension, asthma, hypercholesterolemia presenting with numbness and tingling of the right side of her face in the cheek of her left side of her face started around 2 AM when she went up to go to
the bathroom. She also had numbness and tingling in her right upper extremity mostly in the upper arm. Yesterday she had some mild tingling and weakness in the thighs bilaterally but this had resolved. She had some slight blurry vision.
#Right face paresthesia/numbness
#Right upper extremity paresthesia/numbness
#Right upper extremity weakness
Brain MRI negative, C-spine MRI shows degenerative disc disease
Appreciate neurology input, unclear etiology
Neurology recommends outpatient T-spine MRI, follow-up with neurology in the office
#Hypertensive urgency
Blood pressure 182/127 in the ER
Blood pressure improved on metoprolol succinate 50 mg at bedtime
Resumed home amlodipine 5 mg daily, can resume her benazepril upon discharge
#Vitamin B12 deficiency
Started B12 supplement
#Iron deficiency
Started iron supplement
#Hyperlipidemia
Started statin
#Newly diagnosed type 2 diabetes
Hemoglobin A1c 6.6
Patient informed of her diagnosis by myself on 06/11
Diabetes education consult placed
#Obesity due to excess calories
Affects all aspects of care
DVT prophylaxis�SCDs
Full code
Physical Exam
General: Morbidly obese, no acute distress
HEENT: Normocephalic, Atraumatic, EOMI, MMM
Respiratory: Clear to Auscultation bilaterally
Cardiac: Normal S1/S2, Regular Rate and Rhythm
GI: Soft, Nontender, Nondistended, Normal Bowel Sounds
Extremities: No Clubbing, Cyanosis, or Edema
Neuro:
Right upper extremity 4 out of 5
Left upper extremity 5 out of 5
Bilateral lower extremity 5 out of 5
Psych: Calm, Cooperative
Derm: No Visible lesions
Anticipated Discharge: Today
Subjective/Interval History
-
Date of Service: June 12, 2024
Patient reports improvement in her paresthesia. Continues to have mild right upper extremity weakness.
Objective Data
-
Vital Signs:
Vital Signs
Temp Pulse Resp BP Pulse Ox
97.9 F 81 18 143/88 97
06/12/24 03:51 06/12/24 03:51 06/12/24 03:51 06/12/24 03:51 06/12/24 03:51
I&O
06/11/24 06/12/24 06/13/24
06:59 06:59 06:59
Intake Total 480 / 480 660 / 660
Balance 480 / 480 660 / 660
[2024-06-12] MEDS: NORVASC 5 MG PO (09:00)
[2024-06-12] MEDS: VITAMIN B-12 1000 MCG PO (09:00)
[2024-06-12] MEDS: FEOSOL 325 MG PO (09:01)
--- NOTE | 2024-06-12 09:41 | W.DCSUMMARY ---
Discharge Summary
Discharge Data
Date of Admission: 06/09/24
Date of Discharge: 06/12/24
-
Pending Results: No
Hospital Course
Discharge diagnosis:
Right face paresthesia/numbness
Right upper extremity paresthesia/numbness
Right upper extremity weakness
Cervical spine degenerative disc disease
Hypertensive urgency
Vitamin B12 deficiency
Iron deficiency
Newly onset type 2 diabetes
Hyperlipidemia
Obesity due to excess calories
Consults: Neurology
Brain MRI:
No acute intracranial abnormality noted.
No focal hemodynamically significant stenosis, aneurysm or occlusion.
Cervical spine MRI:
No significant spinal canal or neuroforaminal narrowing. Mild degenerative disc disease of C5-C6 and C6-C7.
No abnormal enhancement within the cervical spinal cord.
Hospital course:
49-year-old female with a past medical history of obesity and hypertension who was admitted for paresthesia/numbness of the right face/right upper extremity, as well as weakness of the right upper extremity. Patient was seen in conjunction with
neurology. Patient had a brain MRI, which is negative for acute intracranial abnormality. She had a C-spine MRI, which showed degenerative disc disease. It is unclear the etiology for her right upper extremity weakness and symptoms. Neurology
states she had EMG outpatient in the past, that was negative.
She does have vitamin B12 deficiency. She received vitamin B12 injection, and will be discharged on vitamin B12.
She was found to have iron deficiency. She was started on iron supplements.
She was also found to have hyperlipidemia. She was started on atorvastatin.
Patient was also found to have new onset type 2 diabetes. Her hemoglobin A1c is 6.6. Dietary education was provided.
Patient had hypertensive urgency upon admission. Her blood pressure improved on her usual home blood pressure regimen.
Patient is medically stable and cleared by neurology for discharge. She has been provided a prescription to get an outpatient MRI of her thoracic spine. She can follow-up with her primary care doctor in 1 week, as well as neurology in the office
in 3-4 weeks.
Disposition: Home self-care
Discharge planning: Required 39 minutes
Discharge Plan
-
Patient Disposition: Home (Routine Discharge)
Discharge Diagnosis/Procedures: Right upper extremity weakness, paresthesia of right face and right upper extremity, vitamin B12 deficiency, iron deficiency, hyperlipidemia, newly diagnosed type 2 diabetes, obesity, degenerative disc disease of the
neck
Condition: Good
Diet: Diabetic, Carb Controlled
Activity: As tolerated
Driving Restrictions: As prior to admission
Activity Restrictions/Additional Instructions:
Please follow-up with your primary care doctor in 1 week, and neurology in the office in 3-4 weeks.
Instructions: Diabetes and diet
Referrals:
Rajinder Gastelum DO [Family Provider] - in one week
Prescriptions:
New
atorvastatin 40 mg Tablet
40 mg PO QPM Qty: 30 0RF
cyanocobalamin (vitamin B-12) 1,000 mcg Tablet
1,000 mcg PO DAILY Qty: 30 0RF
ferrous sulfate 325 mg (65 mg iron) tablet
325 mg PO Q OTHER DAY Qty: 30 0RF
Continued
metoprolol succinate 50 mg Tablet Extended Release 24 Hr
50 mg PO HS
amlodipine-benazepril 10-20 mg Capsule
1 cap PO HS
Discharge Orders:
Discharge Patient (As Directed); Ordered 06/12/24
Ordered By: Velasquez Lamas
Discharge Date and Time
Discharge Date/Time: 06/12/24 12:33
Print Language: KINYARWANDA
--- NOTE | 2024-06-12 12:11 | CM ---
Patient seen bedside, reports she wants to leave now. Patient is very upset with experience at hospital, CM offered support. Patient reports she will be calling Risk Management. Update to nurse that patient would like to leave, discharge order
placed. Will continue to follow for all discharge planning needs.
Plan; home no needs.
[2024-06-12 12:20] VITALS: BP 140/91
[2024-06-12 17:15] LABS: Lyme Antibody Screen, EIA Equivocal (Negative)
[2024-06-13 20:08] LABS: Intrinsic Factor Blocking Ab Negative (Negative)
[2024-06-16 01:05] LABS: Lyme Ab Western Blot IgG Negative (Negative); Lyme Ab Western Blot IgM Negative (Negative)
== END 2024-06-12 12:33 | disposition home or self-care (01) ==
LOC: 4 WEST ACU 20:12
PROVIDERS: Physician Assistant; ADMITTING PHYSICIAN Hospitalist; ATTENDING PHYSICIAN Family Medicine; EMERGENCY PHYSICIAN Emergency Medicine; FAMILY PHYSICIAN Family Medicine; OTHER PHYSICIAN Psychiatry & Neurology Neurology
DX: R53.1 Weakness (principal); R20.0 Anesthesia of skin; R20.2 Paresthesia of skin; H53.8 Other visual disturbances; E53.8 Deficiency of other specified B group vitamins; J45.909 Unspecified asthma, uncomplicated; I10 Essential (primary) hypertension; E78.00 Pure hypercholesterolemia, unspecified; R29.810 Facial weakness; R26.9 Unspecified abnormalities of gait and mobility; I16.1 Hypertensive emergency; R51.9 Headache, unspecified; R53.83 Other fatigue; E61.1 Iron deficiency; R94.31 Abnormal electrocardiogram [ECG] [EKG]; M50.322 Other cervical disc degeneration at C5-C6 level; M50.323 Other cervical disc degeneration at C6-C7 level; E11.9 Type 2 diabetes mellitus without complications; E66.01 Morbid (severe) obesity due to excess calories; Z68.39 Body mass index [BMI] 39.0-39.9, adult; Z82.49 Family history of ischemic heart disease and other diseases of the circulatory system
CPT/HCPCS: 70450; 70544; 70548; 70551; 72156; 80048; 80053; 80061; 82525; 82607; 82728; 82746; 83036; 83921; 84155; 84165; 84443; 85025; 85610; 85730; 86340; 86617; 86618; 87389; 92523; 93005; 97162; 97166; 99285; A9575; A9585; G0378

== ENCOUNTER → 2024-11-19 11:40 | Outpatient (REF) | payer OTHER, SELFPAY | LOC: WDC 11:40 | PROVIDERS: ATTENDING PHYSICIAN Family Medicine | DX: Z12.39 Encounter for other screening for malignant neoplasm of breast (principal) | CPT/HCPCS: 77063; 77067 ==

== ENCOUNTER → 2024-11-25 10:43 | Outpatient (REF) | payer OTHER, SELFPAY | LOC: WDC 10:43 | PROVIDERS: ATTENDING PHYSICIAN Family Medicine | DX: R92.8 Other abnormal and inconclusive findings on diagnostic imaging of breast (principal) | CPT/HCPCS: 76642 ==

== ENCOUNTER → 2025-04-23 09:13 | Outpatient (REF) | payer OTHER, SELFPAY | LOC: RAD 09:13 | PROVIDERS: ATTENDING PHYSICIAN Surgery; FAMILY PHYSICIAN Family Medicine | DX: K43.2 Incisional hernia without obstruction or gangrene (principal) | CPT/HCPCS: 74177; Q9967 ==

== ENCOUNTER 2025-05-06 08:31 | Day surgery (SDC) | payer OTHER, SELFPAY ==
[2025-04-27 11:34] LABS: Hematocrit 38.6 % (37.0-47.0); Hemoglobin 12.8 g/dL (12.0-16.0); Mean Corp Hgb Conc. 33.2 g/dL (33.0-37.0); Mean Corpuscular Volume 84.8 fL (81.0-99.0); Platelet Count 355 10^3/uL (130-400); Red Cell Dist. Width 13.2 % (11.5-14.5)
[2025-04-27 12:22] LABS: Blood Urea Nitrogen 9 mg/dl (7-17); Calcium 9.1 mg/dl (8.4-10.2); Carbon Dioxide 22 mmol/L (22-30); Chloride 109 mmol/L (98-107); Glucose 129 mg/dl (70-99); Potassium 4.5 mmol/L (3.5-5.1); Sodium 139 mmol/L (135-145); eGFR > 60.00
[2025-04-27 14:02] VITALS: BMI 38.4
[2025-05-06] VITALS (9 sets, daily range): BP systolic 101–113; BP diastolic 59–74; BMI 38.4
[2025-05-06] MEDS: TYLENOL 1000 MG PO (08:49)
[2025-05-06] MEDS: NORMOSOL-R/PLASMALYTE-A 1000 IV (09:03)
[2025-05-06] MEDS: EMEND 40 MG PO (09:05)
[2025-05-06] MEDS: TRANSDERM-SCOP 1 PATCH TRANSDERM (09:05)
[2025-05-06] MEDS: ROXICODONE 5 MG PO (12:59)
== END 2025-05-06 13:51 | disposition home or self-care (01) ==
LOC: SDS 08:31
PROVIDERS: ATTENDING PHYSICIAN Surgery; FAMILY PHYSICIAN Family Medicine
DX: K43.0 Incisional hernia with obstruction, without gangrene (principal)
CPT/HCPCS: 49592; 36415; 80048; 85027; 93005

== ENCOUNTER 2025-05-08 03:42 | Emergency (ER) | payer OTHER, SELFPAY ==
[2025-05-08 03:44] VITALS: BP 146/86
[2025-05-08 04:27] VITALS: BP 123/56
[2025-05-08 04:52] LABS: Hematocrit 33.1 % (37.0-47.0); Hemoglobin 10.9 g/dL (12.0-16.0); Mean Corp Hgb Conc. 32.9 g/dL (33.0-37.0); Mean Corpuscular Volume 86.2 fL (81.0-99.0); Nucleated Red Blood Cells % 0 %; Platelet Count 316 10^3/uL (130-400); Red Cell Dist. Width 13.9 % (11.5-14.5)
[2025-05-08 05:00] VITALS: BP 112/62
[2025-05-08 05:12] LABS: ALT (SGPT) 19 U/L (0-35); AST (SGOT) 19 U/L (14-36); Albumin 3.8 g/dl (3.5-5.0); Alkaline Phosphatase 72 U/L (38-126); Blood Urea Nitrogen 15 mg/dl (7-17); Calcium 8.8 mg/dl (8.4-10.2); Carbon Dioxide 27 mmol/L (22-30); Chloride 109 mmol/L (98-107); Glucose 124 mg/dl (70-99); Potassium 4.0 mmol/L (3.5-5.1); Sodium 140 mmol/L (135-145); Total Protein 7.1 g/dl (6.3-8.2); eGFR > 60.00
--- NOTE | 2025-05-08 05:57 | ED.GENMED ---
History of Present Illness
<Isaac Krueger Jr., PA-C - Last Filed: 05/09/25 12:33>
General
Chief Complaint: Extremity Pain (non-traumatic)
Source: patient and family
Exam Limitations: none
Time Seen by Provider: 05/08/25 04:38
Nursing documentation reviewed up to this point in time: agreed with
History of Present Illness
History of Present Illness:
50-year-old female presenting today with concerns of right leg ongoing since yesterday. Had a umbilical hernia repair 2 days ago as well. Has had ongoing abdominal pain since. Also notes that her pulse ox was slightly low at home and also her
blood pressure was slightly low at home. That is since resolved since arrival to the ER. Denies any known history of blood clots. Not on estrogen.
Past History
<Isaac Krueger Jr., PA-C - Last Filed: 05/09/25 12:33>
Past History
ED Past Medical History: Asthma, HTN and Hypercholesterolemia
ED Past Surgical History: Gynecological (Hysterectomy)
Social History
Tobacco: Non-smoker
Alcohol: Occasional
Personal:
Living: with family
Employment: Employed
Family History
Family History: Early CAD and Other (Maternal history of CAD)
Review of Systems
<Isaac Krueger Jr., PA-C - Last Filed: 05/09/25 12:33>
Review of Systems
Allergies reviewed?: Yes
All Other Systems: ROS reviewed and negative except as documented in HPI and ROS
Phy Exam
<RONNELL Lara Jr. Last Filed: 05/09/25 12:33>
Physical Exam
Physical Exam:
GENERAL: Alert , in no apparent distress
EYE: pupils equal and reactive
NECK: Supple, no significant adenopathy.
ENT: o/p clr, mmm.
CARDIAC: Regular rate and rhythm .
LUNGS: Clear breath sounds bilaterally, no acute respiratory distress, no wheezes/rales/rhonchi
ABDOMEN: Vague discomfort throughout the abdomen no redness or warmth around surgical incisions.
NEUROLOGICAL: Alert and oriented, no focal neuro deficits
SKIN: Warm and dry, skin intact.
MUSCULOSKELETAL: No edema, well perfused.
PSYCH: Normal and appropriate interaction.
Course
<Isaac Krueger Jr., RONNELL - Last Filed: 05/09/25 12:33>
Orders/Labs/Results
Orders:
Orders
05/08/25 04:37
Complete Blood Count/With Diff Urgent
Comprehensive Metabolic Panel Urgent
05/08/25 04:58
CT Pe/abd/pel W Urgent
Comment:
Reason For Exam: hypoxia/hypotension, surgery, abd pain incisional
Venous Doppler Lwr Ext Rt [US Perip Venous LOWER Ext RT] Urgent
Comment:
Reason For Exam: right leg swelling
05/08/25 04:59
Electrocardiogram (*1) Urgent
Reason for Study: Abdominal Pain
EKG- Treatment ONCE
05/08/25 05:08
Troponin I Urgent
05/08/25 06:23
Urinalysis Reflex To Culture Urgent
Date Specimen was Collected: 05/08/25
Time Specimen was Collected: 06:21
Urine Microscopic Reflex Cult Urgent
Urine Culture Urgent
JOSE Source: U
Specimen Description:
Obtained by: Random
Date Specimen was Collected: 05/08/25
Time Specimen was Collected: 06:21
Abnormal Lab Results
05/08/25 05/08/25
04:37 06:23
RBC 3.84 L 10^6/uL
(4.20-5.40)
Hgb 10.9 L g/dL
(12.0-16.0)
Hct 33.1 L %
(37.0-47.0)
MCHC 32.9 L g/dL
(33.0-37.0)
Chloride 109 H mmol/L
(98-107)
Glucose 124 H mg/dl
(70-99)
Ur Occult Blood Reflex 1+ A
(Negative)
Leukocyte Esterase Rfl 2+ A
(Negative)
Urine Bacteria (Reflex) Few A
(Negative)
Urine Albumin (Reflex) 2+ A
(Neg - Trace)
05/08/25 04:37
05/08/25 04:37
Vital Signs
Initial and Last Documented VS:
Initial Vital Signs
Temp Pulse Resp BP Pulse Ox
97.7 F 72 20 146/86 95
05/08/25 03:44 05/08/25 03:44 05/08/25 03:44 05/08/25 03:44 05/08/25 03:44
Last Documented Vital Signs
Temp Pulse Resp BP Pulse Ox
97.7 F 61 19 133/87 97
05/08/25 03:44 05/08/25 06:45 05/08/25 06:45 05/08/25 06:30 05/08/25 06:45
<Shelby Ko, BROADCAST DESIGNER - Last Filed: 05/08/25 15:59>
Orders/Labs/Results
Orders:
Orders
05/08/25 04:37
Complete Blood Count/With Diff Urgent
Comprehensive Metabolic Panel Urgent
05/08/25 04:58
CT Pe/abd/pel W Urgent
Comment:
Reason For Exam: hypoxia/hypotension, surgery, abd pain incisional
Venous Doppler Lwr Ext Rt [US Periph Venous LOWER Ext RT] Urgent
Comment:
Reason For Exam: right leg swelling
05/08/25 04:59
Electrocardiogram (*1) Urgent
Reason for Study: Abdominal Pain
EKG- Treatment ONCE
05/08/25 05:08
Troponin I Urgent
05/08/25 06:23
Urinalysis Reflex To Culture Urgent
Date Specimen was Collected: 05/08/25
Time Specimen was Collected: 06:21
Urine Microscopic Reflex Cult Urgent
Urine Culture Urgent
JOSE Source: U
Specimen Description:
Obtained by: Random
Date Specimen was Collected: 05/08/25
Time Specimen was Collected: 06:21
Abnormal Lab Results
05/08/25 05/08/25
04:37 06:23
RBC 3.84 L 10^6/uL
(4.20-5.40)
Hgb 10.9 L g/dL
(12.0-16.0)
Hct 33.1 L %
(37.0-47.0)
MCHC 32.9 L g/dL
(33.0-37.0)
Chloride 109 H mmol/L
(98-107)
Glucose 124 H mg/dl
(70-99)
Ur Occult Blood Reflex 1+ A
(Negative)
Leukocyte Esterase Rfl 2+ A
(Negative)
Urine Bacteria (Reflex) Few A
(Negative)
Urine Albumin (Reflex) 2+ A
(Neg - Trace)
05/08/25 04:37
05/08/25 04:37
Vital Signs
Initial and Last Documented VS:
Initial Vital Signs
Temp Pulse Resp BP Pulse Ox
97.7 F 72 20 146/86 95
05/08/25 03:44 05/08/25 03:44 05/08/25 03:44 05/08/25 03:44 05/08/25 03:44
Last Documented Vital Signs
Temp Pulse Resp BP Pulse Ox
97.7 F 61 19 133/87 97
05/08/25 03:44 05/08/25 06:45 05/08/25 06:45 05/08/25 06:30 05/08/25 06:45
<Isaac Krueger Jr., PA-C - Last Filed: 05/09/25 12:33>
MDM/Problems Addressed
MDM/Problems Addressed:
50-year-old female presenting to the emergency department today with concerns of mainly the right leg discomfort and some swelling to her foot had surgery 2 days ago for an umbilical hernia. Does have some vague abdominal pain but no overlying
redness fluctuance or swelling around the incisions. Patient also does describe recorded hypoxia and low blood pressure while at home. This does raise concern of possible PE plan for further imaging for further assessment. CT PE without evidence
of emergent pathology no signs of blood clot. CT scan showing seroma Case was discussed with general surgery that recommended pain management but otherwise no emergent treatment. Very unlikely to be an abscess.
<Shelby Ko NP - Last Filed: 05/08/25 15:59>
MDM/Problems Addressed
MDM/Problems Addressed:
50-year-old female presenting to the emergency department today with concerns of mainly the right leg discomfort and some swelling to her foot had surgery 2 days ago for an umbilical hernia. Does have some vague abdominal pain but no overlying
redness fluctuance or swelling around the incisions. Patient also does describe recorded hypoxia and low blood pressure while at home. This does raise concern of possible PE plan for further imaging for further assessment. CT PE without evidence
of emergent pathology no signs of blood clot. CT scan showing seroma Case was discussed with general surgery that recommended pain management but otherwise no emergent treatment. Very unlikely to be an abscess.
7:15 a.m.
Received report from Jonathan MEYER, awaiting US results, if neg, OK for discharge
US report reviewed: No DVT
Dr. Chen requests abdominal binder, pt has one at home
9:[address] Chen in
Exam reveals well appearing surgical site, no concerning abdominal symptoms
Possible causes of her low back pain, leg pains, tingling symptoms may be from laying on the OR table for period of time, positioning, not moving around much, mild residual from anesthesia, pinched nerve, Move around as much as you comfortably can.
She has been taking NO medication for pain as she simply doesn't like to take narcotics. Dr. Mortensen asked her to call the office if the oxycodone makes her feel bad and he will prescribe Tramadol.
discussed with Dr. Chen, she is to take Tylenol 500 mg along with ibuprofen 400 mg as well as 1 oxycodone.
Move around more.
Wear the abdominal binder.
He will call her next week to check in.
Given instructions for sciatica.
<Isaac Krueger Jr., PA-C - Last Filed: 05/09/25 12:33>
*Pulse Oximetry
SaO2: 98
Oxygen Mode of Delivery: Room air
<Shelby Ko BROADCAST DESIGNER - Last Filed: 05/08/25 15:59>
*Pulse Oximetry
Patient hypoxic: no
*Critical Care Note
Total Time (30-74mins, 75-104mins- exclusive of procedures): Not Applicable
ED Attending Note
<Isaac Krueger Jr., PA-C - Last Filed: 05/09/25 12:33>
-
Portions of this chart may have been created with voice recognition software.� Occasional wrong word or��sound alike� substitutions may have occurred due to the inherent limitations of voice recognition software.
Discharge Plan
Departure
Patient Disposition: Home (Routine Discharge)
Date of Disposition: 05/08/25
Time of Disposition: 09:28
Patient with high blood pressure during this ER visit?: No
Condition: Fair
Discharge Problem:
Pain in right leg, Paresthesia of right lower extremity
Instructions: Sciatica - ED discharge instructions
Prescriptions:
No Action
metoprolol succinate 50 mg Tablet Extended Release 24 Hr
50 mg PO HS
amlodipine-benazepril 10-20 mg Capsule
1 cap PO HS
atorvastatin 40 mg Tablet
40 mg PO QPM Qty: 30 0RF
cetirizine [Zyrtec] 10 mg Tablet
10 mg PO HS
aspirin 81 mg Tablet,Delayed Release (Dr/Ec)
81 mg PO HS
acetaminophen 500 mg Capsule
500 mg PO Q6H PRN (Reason: pain)
Wegovy 0.5 mg/0.5 mL Pen Injector
0.5 mg SC WEEKLY
Rx Instructions:
QMONDAY
oxycodone 5 mg tablet
5 mg PO Q4HPRN PRN (Reason: breakthrough/severe pain) Qty: 15 0RF
Referrals:
Keron Chen MD [Active, Surgical] - Keep scheduled appt
Rajinder Gastelum DO [Family Provider, Family Practice]
Activity Restrictions/Additional Instructions:
As discussed, your US shows no clot.
As discussed with Dr. Cehn, take Tylenol 500 mg along with ibuprofen 400 mg as well as 1 oxycodone. Do this every 6 hours as needed for pain. Have a little food in your stomach when you take these medications to avoid nausea
Take a stool softener such as Colace and drink plenty of fluids while you are taking the narcotic medication as it can be constipating
Your low back pain, leg pains, tingling symptoms may be from laying on the OR table for period of time, positioning, not moving around much, mild residual from anesthesia, pinched nerve, Move around as much as you comfortably can.
Wear your abdominal binder, tighten to your comfort level.
Dr. Chen will be calling you next week to check in.
Interventions
Interventions:
*Risk Screen - Suicide Last Done: 05/08/25 03:50
*General Assessment Last Done: 05/08/25 03:50
*Neglect/Abuse Screening Last Done: 05/08/25 04:21
*ED COVID-19 Vaccine History Last Done: 05/08/25 03:50
ED-Skin Assessment Last Done: 05/08/25 04:21
ED-Peripheral Vascular Assessment Last Done: 05/08/25 04:21
ED-Musculoskeletal Assessment Last Done: 05/08/25 04:21
TZ-Adfnow-Aybfmxinji Assessment Last Done: 05/08/25 04:21
Discharge Date and Time
Print Language: [place]
[2025-05-08 06:11] LABS: Troponin I < 0.012 ng/ml
[2025-05-08 06:30] VITALS: BP 133/87
[2025-05-08 06:50] LABS: Urine Character Slightly Cloudy (Clear)
[2025-05-08 07:20] LABS: Urine Squamous Cell 21-25 /LPF (Few)
[2025-05-08 07:21] LABS: Urine Red Blood Cell 0-2 /HPF (0-2)
--- NOTE | 2025-05-08 12:27 | W.PN.SURGUPD ---
Surgical Update
Surgical Update
Patient is a 50 yo F POD#2 s/p robotic ventral hernia repair with mesh. Postoperatively she has had a slight headache, reported soft blood pressures, and numbness/tingling in her RIGHT toes. She denies any worsening abdominal pain. No nausea or
vomiting. Passing flatus moving her bowels without any issues. No fevers or chills. Severity of her RLE discomfort prompted presentation to the ER. Associated with this pain she has also had some progressive RIGHT buttock and hip discomfort.
Current patient regimen consist of Tylenol only. Workup notable for normal hemodynamics, normal WBC, normal Hb, normal electrolytes and renal function, no evidence of a UTI. CT scan of the abdomen pelvis was performed which demonstrates an intact
fascial closure with a small seroma containing some air. Venous duplex negative for DVT. Her abdomen is benign, incisions c/d/i, no evidence of erythema or significant discomfort overlying her hernia repair.
No concern for postoperative complication as a relates to her abdomen at this time. Her CT scan findings likely represent a seroma which is not uncommon this really on postrepair. Uncertain exactly what to make of her RLE symptoms, however,
suspect that they may be related to positioning with lower back/hip discomfort and radiculopathy to the foot. Recommend conservative/medical management. Encouraged pain medication use with Tylenol, ibuprofen, and oxycodone as previously scheduled.
Will call and check in next week. No need for further workup and management from a general surgery standpoint.
== END 2025-05-08 09:40 | disposition home or self-care (01) ==
LOC: EMR 03:42
PROVIDERS: Physician Assistant; EMERGENCY PHYSICIAN Student in an Organized Health Care Education/Training Program; FAMILY PHYSICIAN Family Medicine
DX: M79.604 Pain in right leg (principal); R20.2 Paresthesia of skin; J45.909 Unspecified asthma, uncomplicated; I11.9 Hypertensive heart disease without heart failure; E78.00 Pure hypercholesterolemia, unspecified; Z82.49 Family history of ischemic heart disease and other diseases of the circulatory system; Z90.710 Acquired absence of both cervix and uterus
CPT/HCPCS: 99284; 71275; 74177; 80053; 81003; 81015; 84484; 85025; 87086; 93005; 93971; Q9967

== ENCOUNTER 2025-08-22 18:59 | Emergency (ER) | payer OTHER, SELFPAY ==
[2025-08-22 19:01] VITALS: BP 217/135
--- NOTE | 2025-08-22 19:26 | ED.GENMED ---
History of Present Illness
General
Chief Complaint: Fainting Sensation
Source: patient
Time Seen by Provider: 08/22/25 19:07
History of Present Illness
History of Present Illness:
50-year-old female presents to the emergency room for evaluation of feeling lightheaded, excessive saliva and just generally unwell. Patient denies any chest pain or shortness of breath. She denies any fever or chills cough or sore throat.
Patient has a history of hypertension for which she takes unknown medication. She takes it at 930 every night she has been compliant. Patient denies any headache. No focal weakness numbness or tingling.
Past History
Past History
ED Past Medical History: Asthma, HTN and Hypercholesterolemia
ED Past Surgical History: Gynecological (Hysterectomy)
Social History
Tobacco: Non-smoker
Alcohol: Occasional
Personal:
Living: with family
Employment: Employed
Family History
Family History: Early CAD and Other (Maternal history of CAD)
Phy Exam
Physical Exam
Physical Exam:
General: Awake, Alert, Oriented X3. No acute distress.
Vitals: Mildly tachycardic
Head: Atraumatic
Eyes: Pupils equal, EOMI
Throat: Airway intact, no exudates
Neck: Trachea midline
Lungs: Clear and equal b/l
Heart: Regular rate, no murmurs
Abd: Soft, Nontender, No pulsatile mass
Neuro: Cranial nerves intact, muscle strength equal bilaterally
Skin: Warm, dry, no rash
Extremities: pulses equal b/l, no edema
Course
Orders/Labs/Results
Orders:
Orders
08/22/25 19:05
ECG [Electrocardiogram (*1)] Urgent
Reason for Study: Hypertension, Benign
08/22/25 19:06
EKG- Treatment ONCE
08/22/25 19:16
Electrocardiogram (*1) Urgent
Reason for Study: Syncope
Cardiology Consult: Unknown
08/22/25 19:17
EKG- Treatment ONCE
08/22/25 19:46
Complete Blood Count/With Diff Urgent
Comprehensive Metabolic Panel Urgent
Troponin I Urgent
Urinalysis Reflex To Culture Urgent
Date Specimen was Collected: 08/22/25
Time Specimen was Collected: 19:17
Urine Microscopic Reflex Cult Urgent
Urine Culture Urgent
JOSE Source: U
Specimen Description:
Date Specimen was Collected: 08/22/25
Time Specimen was Collected: 19:17
Abnormal Lab Results
08/22/25
19:46
Hct 36.8 L %
(37.0-47.0)
MCHC 32.9 L g/dL
(33.0-37.0)
Glucose 105 H mg/dl
(70-99)
Leukocyte Esterase Rfl 3+ A
(Negative)
Urine WBC (Reflex) 26-30 A /HPF
(0-5)
Urine Bacteria (Reflex) Moderate A
(Negative)
08/22/25 19:46
08/22/25 19:46
Vital Signs
Initial and Last Documented VS:
Initial Vital Signs
Temp Pulse Resp BP Pulse Ox
98.1 F 109 20 217/135 99
08/22/25 19:01 08/22/25 19:01 08/22/25 19:01 08/22/25 19:01 08/22/25 19:01
Last Documented Vital Signs
Temp Pulse Resp BP Pulse Ox
97.2 F 70 20 152/72 97
08/22/25 21:15 08/22/25 21:15 08/22/25 21:15 08/22/25 21:15 08/22/25 21:15
MDM/Problems Addressed
Differential Diagnosis Includes:
Near syncope, vertigo, vasovagal event, dehydration, anemia, dysrhythmia
MDM/Problems Addressed:
Patient presents to the emergency room for evaluation after having sensation of might faint. She was feeling like she was having hypersalivation and just feeling unwell. Vital signs here on arrival showed significant hypertension but this quickly
resolved without intervention. Labs are unremarkable. EKG shows no acute ischemic changes. It is normal sinus rhythm. Patient did give a urine specimen. There is a increased number of WBCs however there is also a large amount of squamous
epithelial cells. She is not having any dysuria or frequency. I do not believe this urinalysis represents an infection. A culture will be sent. Patient has had no dysrhythmia on the monitor. Stable for discharge home and follow-up with her
primary care provider as an outpatient.
*Pulse Oximetry
SaO2: 99
Oxygen Mode of Delivery: Room air
Patient hypoxic: no
*EKG
Interpreted by ED Provider?: Yes
Heart Rate: 102
Rate: tachycardiac
Rhythm: sinus tachycardia
[place]: normal axis
Interval: normal interval
QRS Pattern: normal QRS
Ischemia: no ischemia
*Reports Analyst Interpretation
Rate: tachycardiac
Interpretation: abnormal
Rhythm: sinus tachycardia
*Critical Care Note
Total Time (30-74mins, 75-104mins- exclusive of procedures): Not Applicable
ED Attending Note
-
Portions of this chart may have been created with voice recognition software.� Occasional wrong word or��sound alike� substitutions may have occurred due to the inherent limitations of voice recognition software.
Discharge Plan
Departure
Patient Disposition: Home (Routine Discharge)
Date of Disposition: 08/22/25
Time of Disposition: 21:03
Patient with high blood pressure during this ER visit?: Yes
Condition: Good
Discharge Problem:
Near syncope
Instructions: Near Fainting (DC), BLOOD PRESSURE
Prescriptions:
No Action
metoprolol succinate 50 mg Tablet Extended Release 24 Hr
50 mg PO HS
amlodipine-benazepril 10-20 mg Capsule
1 cap PO HS
atorvastatin 40 mg Tablet
40 mg PO QPM Qty: 30 0RF
cetirizine [Zyrtec] 10 mg Tablet
10 mg PO HS
aspirin 81 mg Tablet,Delayed Release (Dr/Ec)
81 mg PO HS
acetaminophen 500 mg Capsule
500 mg PO Q6H PRN (Reason: pain)
Wegovy 0.5 mg/0.5 mL Pen Injector
0.5 mg SC WEEKLY
Rx Instructions:
QMONDAY
Activity Restrictions/Additional Instructions:
Please follow-up with your family doctor
Interventions
Interventions:
*Risk Screen - Suicide Last Done: 08/22/25 21:30
*General Assessment Last Done: 08/22/25 19:01
*Neglect/Abuse Screening Last Done: 08/22/25 19:51
*ED- Fall Risk Assessment Last Done: 08/22/25 21:30
*ED COVID-19 Vaccine History Last Done: 08/22/25 19:51
*ED Influenza Vaccine History Last Done: 08/22/25 19:51
*Nursing Disposition Last Done: 08/22/25 21:30
ED- Cardiac Assessment Last Done: 08/22/25 19:51
ED- Neurological Assessment Last Done: 08/22/25 19:51
Discharge Date and Time
Discharge Date/Time: 08/22/25 22:02
Print Language: ROMANSH
[2025-08-22 19:35] VITALS: BMI 38.6
[2025-08-22 19:55] LABS: Hematocrit 36.8 % (37.0-47.0); Hemoglobin 12.1 g/dL (12.0-16.0); Mean Corp Hgb Conc. 32.9 g/dL (33.0-37.0); Mean Corpuscular Volume 84.2 fL (81.0-99.0); Nucleated Red Blood Cells % 0 %; Platelet Count 341 10^3/uL (130-400); Red Cell Dist. Width 12.7 % (11.5-14.5)
[2025-08-22 19:59] LABS: Urine Character Clear (Clear)
[2025-08-22 20:00] VITALS: BP 142/83
[2025-08-22 20:07] LABS: Urine Squamous Cell >30 /LPF (Few)
[2025-08-22 20:08] LABS: Urine Red Blood Cell 0-2 /HPF (0-2); Urine White Cell 26-30 /HPF (0-5)
[2025-08-22 20:12] LABS: ALT (SGPT) 21 U/L (0-35); AST (SGOT) 22 U/L (14-36); Albumin 4.3 g/dl (3.5-5.0); Alkaline Phosphatase 87 U/L (38-126); Blood Urea Nitrogen 10 mg/dl (7-17); Calcium 9.6 mg/dl (8.4-10.2); Carbon Dioxide 24 mmol/L (22-30); Chloride 107 mmol/L (98-107); Estimated Creatinine Clearance > 125 ml/min; Glucose 105 mg/dl (70-99); Potassium 3.6 mmol/L (3.5-5.1); Sodium 138 mmol/L (135-145); Total Protein 8.0 g/dl (6.3-8.2); eGFR > 60.00
[2025-08-22 20:23] LABS: Troponin I < 0.012 ng/ml
[2025-08-22 21:15] VITALS: BP 152/72
== END 2025-08-22 22:02 | disposition home or self-care (01) ==
LOC: EMR 18:59
PROVIDERS: EMERGENCY PHYSICIAN Emergency Medicine; PRIMARYCARE PHYSICIAN Family Medicine
DX: R55 Syncope and collapse (principal); R00.0 Tachycardia, unspecified; J45.909 Unspecified asthma, uncomplicated; I10 Essential (primary) hypertension; E78.00 Pure hypercholesterolemia, unspecified; Z90.710 Acquired absence of both cervix and uterus
CPT/HCPCS: 99284; 80053; 81003; 81015; 84484; 85025; 87086; 93005